=== PATIENT | female | born 1980 | race Caucasian/White ===

== ENCOUNTER 2018-07-23 17:58 | Emergency (ER) | payer SELFPAY ==
[~2018-07-23] VITALS: Ht 165.1 cm; Wt 66.0 kg
[2018-07-23 18:19] VITALS: BP 108/69
== END 2018-07-23 19:00 | disposition home or self-care (01) ==
LOC: ER 17:58
DX: H66.93 Otitis media, unspecified, bilateral (principal); I10 Essential (primary) hypertension
CPT/HCPCS: 99283